=== PATIENT | female | born 1960 | race Caucasian/White ===

== ENCOUNTER 2019-06-28 19:27 | Inpatient (IN) ==
[2019-06-28] MEDS ORDERED: Albuterol 2.5 MG/3 ML NEBULIZER IH PRN (23:01)
[2019-06-28] MEDS ORDERED: Naloxone 0.4 MG/ML INJ IVP PRN (23:01)
[2019-06-28] MEDS ORDERED: 0.9 % Sodium Chloride 1,000 ML IVC SCH (23:15)
[2019-06-28] MEDS ORDERED: Ipratropium/Albuterol Neb 3 ML ONE (23:37)
[2019-06-28 23:50] LABS: VBG HCO3 29 mEq/L (21-27); VBG PCO2 55 mmHg (41-51); VBG PH 7.32 pH Units (7.32-7.42); VBG PO2 79 mmHg (25-50)
[2019-06-28] MEDS: Ipratropium/Albuterol Neb 3 ML IH SCH (23:53)
[2019-06-29] MEDS: Ipratropium/Albuterol Neb 3 ML IH SCH ×4 (03:55→21:41)
[2019-06-29 05:22] LABS: Basophils % 0.2 %; Hematocrit 47.5 % (35.3-44.9); Hemoglobin 15.3 g/dL (11.5-15.4); Immature Granulocytes % 0.6 % (0-4); Lymphocytes % 7.2 %; Mean Corpuscular HGB Conc 32.2 g/dL (31.6-35.5); Mean Corpuscular Hemoglobin 31.9 pg (28.0-33.3); Mean Platelet Volume 10.5 fL (9.4-12.4); Monocytes # 0.2 K/mcL (0.0-1.3); Monocytes % 1.3 %; Neutrophils # 12.9 K/mcL (1.6-8.9); Platelet Count 157 K/mcL (140-400); Segmented Neutrophils % 90.7 %; White Blood Count 14.2 K/mcL (4.3-11.1)
[2019-06-29] MEDS: *HR* Heparin 5,000 UNIT/ML VIAL SQ SCH ×2 (05:22→16:58)
[2019-06-29 05:24] LABS: Prothrombin Time 11.7 Seconds (9.4-12.1)
[2019-06-29 05:41] LABS: Albumin/Globulin Ratio 1.3 (1.1-2.2); Bilirubin,Total 0.4 mg/dL (0.3-1.0); Calcium 9.7 mg/dL (8.6-10.3); Magnesium 1.9 mg/dL (1.6-2.6); Phosphorous 3.1 mg/dL (2.7-4.5); Potassium 5.2 mEq/L (3.5-5.1)
[2019-06-29] MEDS: cefTRIAXone 2,000 MG in Water for inj. (sterile) 20 ML IVP SCH (08:18)
[2019-06-29] MEDS: predniSONE 20 MG TABLET PO SCH (08:18)
[2019-06-29] MEDS ORDERED: cefTRIAXone 1,000 MG in Water for inj. (sterile) 10 ML IVP SCH (09:00)
[2019-06-29] MEDS: Insulin LISPRO 300 UNITS/3 ML VIAL SQ SCH ×3 (12:26→21:26)
[2019-06-29] MEDS ORDERED: 0.9 % Sodium Chloride 1,000 ML IVC SCH (13:15)
[2019-06-29] MEDS: lamoTRIgine 100 MG TABLET PO SCH ×2 (15:24→21:20)
[2019-06-29] MEDS ORDERED: Nystatin Cream 15 GM TUBE TP PRN (16:32)
[2019-06-29] MEDS ORDERED: methocarbamoL 500 MG TABLET PO PRN (16:32)
[2019-06-29] MEDS ORDERED: NON-FORMULARY MEDICATION 1 EACH EACH (Tiotropium Br/Olodaterol Hcl [Stiolto Respimat Inhal IH PRN (16:32)
[2019-06-29] MEDS ORDERED: Ergocalciferol (VIT D2) 50,000 UNIT (1.25MG) CAP PO SCH (16:45)
[2019-06-29] MEDS: Gabapentin 400 MG CAPSULE PO SCH ×2 (17:51→21:23)
[2019-06-29] MEDS ORDERED: NON-FORMULARY MEDICATION 1 EACH EACH (Gabapentin [Neurontin] 800 MG) PO SCH (21:00)
[2019-06-29] MEDS: *HR* OxyCODONE/APAP 7.5/325 TABLET PO PRN (21:20)
[2019-06-29] MEDS: BuPROPion SR (12 HR) 100 MG TABLET PO SCH (21:20)
[2019-06-29] MEDS: atenoloL 25 MG TABLET PO SCH (21:20)
[2019-06-29] MEDS: Famotidine 20 MG TABLET PO SCH (21:20)
[2019-06-29] MEDS: lisinopriL 10 MG TABLET PO SCH (21:23)
[2019-06-30] MEDS: Ipratropium/Albuterol Neb 3 ML IH SCH ×4 (04:00→21:46)
[2019-06-30 05:20] LABS: Hematocrit 43.2 % (35.3-44.9); Mean Corpuscular HGB Conc 31.3 g/dL (31.6-35.5); Mean Corpuscular Hemoglobin 30.8 pg (28.0-33.3); Mean Corpuscular Volume 98.6 fL (83.0-100.0); Mean Platelet Volume 10.6 fL (9.4-12.4); Platelet Count 163 K/mcL (140-400); Red Blood Count 4.38 M/mcL (3.82-4.97); Red Cell Distribution Width 12.8 % (11.5-14.5); White Blood Count 16.1 K/mcL (4.3-11.1)
[2019-06-30 05:22] LABS: Hemoglobin 13.5 g/dL (11.5-15.4)
[2019-06-30 05:28] LABS: Potassium 4.3 mEq/L (3.5-5.1)
[2019-06-30] MEDS: *HR* Heparin 5,000 UNIT/ML VIAL SQ SCH ×2 (05:34→16:58)
[2019-06-30] MEDS: predniSONE 20 MG TABLET PO SCH (07:16)
[2019-06-30] MEDS: atenoloL 50 MG TABLET PO SCH (07:16)
[2019-06-30] MEDS: Cyanocobalamin (B-12) 1,000 MCG TABLET PO SCH (07:16)
[2019-06-30] MEDS: Aspirin Enteric Coated 81 MG Tablet PO SCH (07:16)
[2019-06-30] MEDS: Gabapentin 400 MG CAPSULE PO SCH ×3 (07:16→19:45)
[2019-06-30] MEDS: Lurasidone 20 MG TABLET PO SCH (07:16)
[2019-06-30] MEDS: cefTRIAXone 2,000 MG in Water for inj. (sterile) 20 ML IVP SCH (07:16)
[2019-06-30] MEDS: BuPROPion SR (12 HR) 100 MG TABLET PO SCH ×2 (07:16→19:47)
[2019-06-30] MEDS: lamoTRIgine 100 MG TABLET PO SCH ×2 (07:16→19:46)
[2019-06-30] MEDS: Insulin LISPRO 300 UNITS/3 ML VIAL SQ SCH ×4 (07:17→19:47)
[2019-06-30] MEDS ORDERED: 0.9 % Sodium Chloride 1,000 ML IVC SCH (09:00)
[2019-06-30] MEDS ORDERED: NON-FORMULARY MEDICATION 1 EACH EACH (Omega-3/Dha/Epa/Fish Oil [Fish Oil 1,000 Mg Softgel] PO SCH (09:00)
[2019-06-30] MEDS: Tiotropium 18 MCG inhalation IH SCH (10:02)
[2019-06-30] MEDS ORDERED: Isovue-370 500 ML BOTTLE IVP ONE ×2 (13:50→13:53)
[2019-06-30] MEDS: *HR* OxyCODONE/APAP 7.5/325 TABLET PO PRN (16:58)
[2019-06-30] MEDS: atenoloL 25 MG TABLET PO SCH (19:45)
[2019-06-30] MEDS: lisinopriL 10 MG TABLET PO SCH (19:45)
[2019-06-30] MEDS: Famotidine 20 MG TABLET PO SCH (19:46)
[2019-07-01] MEDS: *HR* OxyCODONE/APAP 7.5/325 TABLET PO PRN (01:14)
[2019-07-01] MEDS: Ipratropium/Albuterol Neb 3 ML IH SCH ×2 (03:38→09:49)
[2019-07-01] MEDS: *HR* Heparin 5,000 UNIT/ML VIAL SQ SCH (05:39)
[2019-07-01] MEDS: cefTRIAXone 2,000 MG in Water for inj. (sterile) 20 ML IVP SCH (08:05)
[2019-07-01] MEDS: Gabapentin 400 MG CAPSULE PO SCH (08:06)
[2019-07-01] MEDS: atenoloL 50 MG TABLET PO SCH (08:06)
[2019-07-01] MEDS: predniSONE 20 MG TABLET PO SCH (08:06)
[2019-07-01] MEDS: Aspirin Enteric Coated 81 MG Tablet PO SCH (08:06)
[2019-07-01] MEDS: Cyanocobalamin (B-12) 1,000 MCG TABLET PO SCH (08:06)
[2019-07-01] MEDS: BuPROPion SR (12 HR) 100 MG TABLET PO SCH (08:06)
[2019-07-01] MEDS: Lurasidone 20 MG TABLET PO SCH (08:06)
[2019-07-01] MEDS: lamoTRIgine 100 MG TABLET PO SCH (08:06)
[2019-07-01] MEDS: Insulin LISPRO 300 UNITS/3 ML VIAL SQ SCH (08:06)
[2019-07-01] MEDS: Tiotropium 18 MCG inhalation IH SCH (08:14)
[2019-07-01 08:47] LABS: Hematocrit 43.2 % (35.3-44.9); Hemoglobin 13.9 g/dL (11.5-15.4); Mean Corpuscular HGB Conc 32.2 g/dL (31.6-35.5); Mean Corpuscular Hemoglobin 31.5 pg (28.0-33.3); Mean Platelet Volume 10.2 fL (9.4-12.4); Platelet Count 172 K/mcL (140-400); Red Blood Count 4.41 M/mcL (3.82-4.97); Red Cell Distribution Width 12.8 % (11.5-14.5); White Blood Count 10.7 K/mcL (4.3-11.1)
[2019-07-01 09:08] LABS: Calcium 10.2 mg/dL (8.6-10.3); Potassium 4.2 mEq/L (3.5-5.1)
[2019-07-01 09:38] VITALS: BP 154/88
== END 2019-07-01 12:15 | disposition home or self-care (01) | DRG 189 ==
LOC: 2ANU → SUATTDRO 20:40
PROVIDERS: ADMIT Internal Medicine; ATTEND Family Medicine

== ENCOUNTER 2020-02-24 11:29 | Inpatient (IN) ==
[2020-02-24] MEDS ORDERED: Naloxone 0.4 MG/ML INJ IVP PRN (16:43)
[2020-02-24] MEDS ORDERED: Acetaminophen 325 MG TABLET PO PRN (16:43)
[2020-02-24] MEDS ORDERED: Ondansetron 4 MG/2 ML VIAL IVP PRN (16:43)
[2020-02-24] MEDS ORDERED: Dextrose Gel 15 GM/37.5 ML TUBE PO PRN ×2 (17:10)
[2020-02-24] MEDS ORDERED: *HR* Dextrose 50 % in Water (Vial) 50 ML VIAL IVP PRN (17:10)
[2020-02-24] MEDS ORDERED: D5% in Water 1,000 ML IVC PRN (17:10)
[2020-02-24] MEDS ORDERED: Ipratropium/Albuterol Neb 3 ML IH PRN (17:12)
[2020-02-24 17:45] LABS: VBG HCO3 31 mEq/L (21-27); VBG PCO2 51 mmHg (41-51); VBG PH 7.39 pH Units (7.32-7.42); VBG PO2 203 mmHg (25-50)
[2020-02-24] MEDS: *HR* OxyCODONE/APAP 7.5/325 TABLET PO PRN (18:37)
[2020-02-24] MEDS: lamoTRIgine 100 MG TABLET PO SCH (19:29)
[2020-02-24] MEDS: Insulin LISPRO 300 UNITS/3 ML VIAL SQ SCH (19:30)
[2020-02-24] MEDS: *HR* Heparin 5,000 UNIT/ML VIAL SQ SCH (22:24)
[2020-02-25 04:19] LABS: Basophils % 0.2 %; Hematocrit 46.3 % (35.3-44.9); Hemoglobin 14.2 g/dL (11.5-15.4); Immature Granulocytes % 0.3 % (0-4); Lymphocytes # 1.7 K/mcL (0.6-4.6); Lymphocytes % 14.4 %; Mean Corpuscular HGB Conc 30.7 g/dL (31.6-35.5); Mean Corpuscular Hemoglobin 31.7 pg (28.0-33.3); Mean Corpuscular Volume 103.3 fL (83.0-100.0); Mean Platelet Volume 10.5 fL (9.4-12.4); Monocytes # 0.8 K/mcL (0.0-1.3); Monocytes % 6.7 %; Neutrophils # 9.4 K/mcL (1.6-8.9); Platelet Count 175 K/mcL (140-400); Red Blood Count 4.48 M/mcL (3.82-4.97); Red Cell Distribution Width 13.6 % (11.5-14.5); Segmented Neutrophils % 78.4 %
[2020-02-25 04:31] LABS: INR 1.1; Prothrombin Time 12.7 Seconds (9.4-12.1)
[2020-02-25 04:40] LABS: Calcium 9.7 mg/dL (8.6-10.3); Magnesium 1.6 mg/dL (1.6-2.6); Potassium 4.5 mEq/L (3.5-5.1)
[2020-02-25 05:02] LABS: Estimated Average Glucose 180 mg/dl
[2020-02-25] MEDS: *HR* Heparin 5,000 UNIT/ML VIAL SQ SCH ×3 (06:12→21:34)
[2020-02-25] MEDS: Cyanocobalamin (B-12) 1,000 MCG TABLET PO SCH (08:10)
[2020-02-25] MEDS: lamoTRIgine 100 MG TABLET PO SCH ×2 (08:10→19:17)
[2020-02-25] MEDS: Aspirin Enteric Coated 81 MG Tablet PO SCH (08:10)
[2020-02-25] MEDS: Gabapentin 400 MG CAPSULE PO SCH ×3 (08:11→19:16)
[2020-02-25] MEDS: lisinopriL 20 MG TABLET PO SCH (08:11)
[2020-02-25] MEDS: cefTRIAXone 1,000 MG in Water for inj. (sterile) 10 ML IVP SCH (08:14)
[2020-02-25] MEDS: Insulin LISPRO 300 UNITS/3 ML VIAL SQ SCH ×4 (08:24→19:27)
[2020-02-25] MEDS: Vortioxetine Hydrobromide [Trintellix] 5 MG PO SCH (08:27)
[2020-02-25] MEDS ORDERED: lisinopriL 10 MG TABLET PO SCH (09:00)
[2020-02-25] MEDS ORDERED: cefTRIAXone 1,000 MG in 0.9 % Sodium Chloride Mini Bag 100 ML IVPB SCH (09:00)
[2020-02-25] MEDS: *HR* OxyCODONE/APAP 7.5/325 TABLET PO PRN (13:52)
[2020-02-26] MEDS: *HR* Heparin 5,000 UNIT/ML VIAL SQ SCH ×3 (06:04→20:27)
[2020-02-26 06:34] LABS: Basophils % 0.5 %; Eosinophils # 0.1 K/mcL (0.0-0.6); Eosinophils % 0.6 %; Hematocrit 46.7 % (35.3-44.9); Hemoglobin 14.1 g/dL (11.5-15.4); Immature Granulocytes % 0.3 % (0-4); Lymphocytes # 2.4 K/mcL (0.6-4.6); Lymphocytes % 30.5 %; Mean Corpuscular HGB Conc 30.2 g/dL (31.6-35.5); Mean Corpuscular Hemoglobin 31.4 pg (28.0-33.3); Monocytes # 0.6 K/mcL (0.0-1.3); Monocytes % 7.9 %; Neutrophils # 4.7 K/mcL (1.6-8.9); Platelet Count 163 K/mcL (140-400); Red Blood Count 4.49 M/mcL (3.82-4.97); Red Cell Distribution Width 13.7 % (11.5-14.5); Segmented Neutrophils % 60.2 %; White Blood Count 7.8 K/mcL (4.3-11.1)
[2020-02-26 06:50] LABS: Calcium 9.9 mg/dL (8.6-10.3); Magnesium 1.8 mg/dL (1.6-2.6); Potassium 4.4 mEq/L (3.5-5.1)
[2020-02-26] MEDS: lisinopriL 20 MG TABLET PO SCH (08:37)
[2020-02-26] MEDS: Gabapentin 400 MG CAPSULE PO SCH ×3 (08:37→19:27)
[2020-02-26] MEDS: Cyanocobalamin (B-12) 1,000 MCG TABLET PO SCH (08:37)
[2020-02-26] MEDS: lamoTRIgine 100 MG TABLET PO SCH ×2 (08:37→19:27)
[2020-02-26] MEDS: Aspirin Enteric Coated 81 MG Tablet PO SCH (08:37)
[2020-02-26] MEDS: cefTRIAXone 1,000 MG in Water for inj. (sterile) 10 ML IVP SCH (08:38)
[2020-02-26] MEDS: Insulin LISPRO 300 UNITS/3 ML VIAL SQ SCH ×4 (08:40→20:28)
[2020-02-26] MEDS: Vortioxetine Hydrobromide [Trintellix] 5 MG PO SCH (19:10)
[2020-02-27 03:10] LABS: Basophils % 0.4 %; Eosinophils # 0.1 K/mcL (0.0-0.6); Eosinophils % 1.3 %; Hematocrit 46.2 % (35.3-44.9); Hemoglobin 14.6 g/dL (11.5-15.4); Immature Granulocytes % 0.2 % (0-4); Lymphocytes # 2.9 K/mcL (0.6-4.6); Lymphocytes % 33.7 %; Mean Corpuscular HGB Conc 31.6 g/dL (31.6-35.5); Mean Corpuscular Hemoglobin 31.9 pg (28.0-33.3); Mean Corpuscular Volume 100.9 fL (83.0-100.0); Mean Platelet Volume 10.4 fL (9.4-12.4); Monocytes # 0.7 K/mcL (0.0-1.3); Monocytes % 8.4 %; Neutrophils # 4.7 K/mcL (1.6-8.9); Platelet Count 165 K/mcL (140-400); Red Blood Count 4.58 M/mcL (3.82-4.97); Red Cell Distribution Width 13.1 % (11.5-14.5); White Blood Count 8.5 K/mcL (4.3-11.1)
[2020-02-27 03:28] LABS: Magnesium 1.7 mg/dL (1.6-2.6); Potassium 4.2 mEq/L (3.5-5.1)
[2020-02-27] MEDS: *HR* Heparin 5,000 UNIT/ML VIAL SQ SCH ×2 (05:57→13:27)
[2020-02-27] MEDS: cefTRIAXone 1,000 MG in Water for inj. (sterile) 10 ML IVP SCH (08:16)
[2020-02-27] MEDS: Insulin LISPRO 300 UNITS/3 ML VIAL SQ SCH ×2 (08:16→13:27)
[2020-02-27] MEDS: lisinopriL 20 MG TABLET PO SCH (08:18)
[2020-02-27] MEDS: Vortioxetine Hydrobromide [Trintellix] 5 MG PO SCH (08:18)
[2020-02-27] MEDS: Aspirin Enteric Coated 81 MG Tablet PO SCH (08:18)
[2020-02-27] MEDS: Gabapentin 400 MG CAPSULE PO SCH ×2 (08:18→13:27)
[2020-02-27] MEDS: Cyanocobalamin (B-12) 1,000 MCG TABLET PO SCH (08:18)
[2020-02-27] MEDS: lamoTRIgine 100 MG TABLET PO SCH (08:18)
[2020-02-27 11:15] VITALS: BP 162/92
[2020-02-27] MEDS ORDERED: FLU Vac QV 20-21 (6Month+)/PF 0.5 ML SYRINGE IM ONE (14:37)
[2020-02-29] MEDS ORDERED: Ergocalciferol (VIT D2) 50,000 UNIT (1.25MG) CAP PO SCH (09:00)
== END 2020-02-27 15:35 | disposition home or self-care (01) | DRG 189 ==
LOC: 2NNU → SUATTDRO 14:31
PROVIDERS: ADMIT Pharmacist; ATTEND Student in an Organized Health Care Education/Training Program

== ENCOUNTER 2021-11-28 10:22 | Inpatient (IN) ==
[2021-11-28] MEDS ORDERED: Ipratropium/Albuterol Neb 3 ML IH ONE (10:47)
[2021-11-28] MEDS ORDERED: methylPREDNISolone 125 MG/2 ML VIAL IVP ONE (10:47)
[2021-11-28] MEDS ORDERED: Albuterol 2.5 MG/3 ML NEBULIZER IH ONE (10:47)
[2021-11-28 11:08] LABS: Basophils # 0.1 K/mcL (0.0-0.2); Basophils % 0.7 %; Eosinophils # 0.1 K/mcL (0.0-0.6); Eosinophils % 1.3 %; Hematocrit 53.5 % (35.3-44.9); Hemoglobin 16.2 g/dL (11.5-15.4); Immature Granulocytes % 0.2 % (0-4); Lymphocytes # 1.7 K/mcL (0.6-4.6); Lymphocytes % 19.1 %; Mean Corpuscular HGB Conc 30.3 g/dL (31.6-35.5); Mean Corpuscular Hemoglobin 29.2 pg (28.0-33.3); Mean Corpuscular Volume 96.6 fL (83.0-100.0); Mean Platelet Volume 10.9 fL (9.4-12.4); Monocytes % 11.2 %; Neutrophils # 6.1 K/mcL (1.6-8.9); Platelet Count 186 K/mcL (140-400); Red Blood Count 5.54 M/mcL (3.82-4.97); Red Cell Distribution Width 13.7 % (11.5-14.5); Segmented Neutrophils % 67.5 %
[2021-11-28] MEDS ORDERED: Iopamidol - 370 500 ML MLS IVP ONE ×2 (11:12→11:15)
[2021-11-28] MEDS ORDERED: Azithromycin 250 MG TABLET PO ONE (11:24)
[2021-11-28] MEDS ORDERED: cefTRIAXone 1,000 MG in Water for inj. (sterile) 10 ML IVP ONE (11:24)
[2021-11-28 11:27] LABS: ABG Base Excess 5 mEq/L (-2 to 3); ABG HCO3 36 mEq/L (21-27); ABG Oxygen Saturation 90 % (95-98); ABG PCO2 81 mmHg (35-45); ABG PH 7.25 pH Units (7.32-7.45); ABG PO2 71 mmHg (85-104); ABG TCO2 38 mEq/L (20-26)
[2021-11-28 11:31] LABS: Alanine Aminotransferase 10 Units/L (7-52); Albumin 3.4 g/dL (3.5-5.7); Albumin/Globulin Ratio 1.1 (1.1-2.2); Alkaline Phosphatase 127 Units/L (34-104); Aspartate Amino Transferase 17 Units/L (13-39); BUN/Creatinine Ratio 13 (6-26); Bilirubin,Total 0.4 mg/dL (0.3-1.0); Blood Urea Nitrogen 18 mg/dL (8-23); Calcium 8.7 mg/dL (8.6-10.3); Carbon Dioxide 37 mEq/L (23-29); Chloride 99 mEq/L (98-107); Glucose 146 mg/dL (70-105); Osmolality,Calculated 291 (280-300); Potassium 4.5 mEq/L (3.5-5.1); Sodium 138 mEq/L (136-145); Total Protein 6.4 g/dL (6.4-8.9); Troponin I < 0.03 ng/mL (< 0.04)
[2021-11-28 12:18] LABS: Adenovirus Not Detected (Not Detect); Bordetella Pertussis Not Detected (Not Detect); Chlamydophila pneumoniae Not Detected (Not Detect); Coronavirus 229E Not Detected (Not Detect); Coronavirus HKU1 Not Detected (Not Detect); Coronavirus NL63 Not Detected (Not Detect); Coronavirus OC43 Not Detected (Not Detect); Human Metapneumovirus Not Detected (Not Detect); Human Rhinovirus/Enterovirus Not Detected (Not Detect); Influenza A Subtype 2009 H1 Not Detected (Not Detect); Influenza B Not Detected (Not Detect); Mycoplasma pneumoniae Not Detected (Not Detect); Parainfluenza Virus 1 Not Detected (Not Detect); Parainfluenza Virus 2 Not Detected (Not Detect); Parainfluenza Virus 3 Not Detected (Not Detect); Parainfluenza Virus 4 Not Detected (Not Detect); Respiratory Syncytial Virus Not Detected (Not Detect); SARS-CoV-2 Not Detected (Not Detect)
[2021-11-28] MEDS ORDERED: Naloxone 0.4 MG/ML INJ IVP PRN (14:53)
[2021-11-28] MEDS ORDERED: D5% in Water 1,000 ML IVC PRN (15:40)
[2021-11-28] MEDS ORDERED: *HR* Dextrose 50 % in Water (Syg) 50 ML SYRINGE IVP PRN (15:40)
[2021-11-28] MEDS ORDERED: Dextrose Gel 15 GM/37.5 ML TUBE PO PRN ×2 (15:40)
[2021-11-28] MEDS: Ipratropium/Albuterol Neb 3 ML IH SCH ×3 (16:20→23:08)
[2021-11-28] MEDS: Insulin LISPRO 300 UNITS/3 ML VIAL SUBQ SCH ×2 (17:01→21:05)
[2021-11-28] MEDS: MethylPREDNISolone 40 MG/ML VIAL IVP SCH ×2 (17:45→23:52)
[2021-11-28] MEDS: *HR* Heparin 5,000 UNIT/ML VIAL SQ SCH (17:46)
[2021-11-28] MEDS: Gabapentin 300 MG CAPSULE PO SCH (22:07)
[2021-11-29] MEDS ORDERED: *HR* Metoprolol 5 MG/5 ML VIAL IVP PRN (00:13)
[2021-11-29] MEDS: *HR* OxyCODONE/APAP 7.5/325 TABLET PO PRN ×2 (00:24→22:03)
[2021-11-29] MEDS: *HR* Labetalol 20 MG/4 ML SYRINGE IVP PRN ×2 (02:17→06:33)
[2021-11-29] MEDS: Ipratropium/Albuterol Neb 3 ML IH SCH ×6 (04:01→23:35)
[2021-11-29] MEDS: *HR* Heparin 5,000 UNIT/ML VIAL SQ SCH ×2 (05:40→17:17)
[2021-11-29] MEDS: Insulin LISPRO 300 UNITS/3 ML VIAL SUBQ SCH ×4 (08:00→19:54)
[2021-11-29] MEDS: MethylPREDNISolone 40 MG/ML VIAL IVP SCH ×2 (08:01→15:02)
[2021-11-29] MEDS: Aspirin Enteric Coated 81 MG Tablet PO SCH (08:06)
[2021-11-29] MEDS: lamoTRIgine 100 MG TABLET PO SCH ×2 (08:07→19:54)
[2021-11-29] MEDS: Gabapentin 300 MG CAPSULE PO SCH ×3 (08:07→19:53)
[2021-11-29] MEDS: LEVOMILNACIPRAN 40 MG PO SCH (08:07)
[2021-11-29] MEDS: calcitrioL 0.25 MCG CAPSULE PO SCH (08:08)
[2021-11-29] MEDS: lisinopriL 20 MG TABLET PO SCH (08:08)
[2021-11-29] MEDS: methocarbamoL 750 MG TABLET PO SCH ×3 (08:08→19:54)
[2021-11-29] MEDS: atenoloL 25 MG TABLET PO SCH (08:08)
[2021-11-29] MEDS: Cyanocobalamin (B-12) 1,000 MCG TABLET PO SCH (08:08)
[2021-11-29 08:48] LABS: VBG HCO3 35 mEq/L (21-27); VBG PCO2 77 mmHg (41-51); VBG PH 7.26 pH Units (7.32-7.42); VBG PO2 84 mmHg (25-50)
[2021-11-29 08:49] LABS: Hematocrit 54.5 % (35.3-44.9); Hemoglobin 16.2 g/dL (11.5-15.4); Mean Corpuscular HGB Conc 29.7 g/dL (31.6-35.5); Mean Corpuscular Hemoglobin 28.5 pg (28.0-33.3); Platelet Count 189 K/mcL (140-400); Red Blood Count 5.68 M/mcL (3.82-4.97); Red Cell Distribution Width 13.5 % (11.5-14.5); White Blood Count 10.9 K/mcL (4.3-11.1)
[2021-11-29 09:12] LABS: Calcium 9.3 mg/dL (8.6-10.3); Magnesium 1.8 mg/dL (1.6-2.6)
[2021-11-29] MEDS: Azithromycin 500 MG in 0.9 % Sodium Chloride 250 ML IVPB SCH (12:58)
[2021-11-30] MEDS: MethylPREDNISolone 40 MG/ML VIAL IVP SCH ×3 (00:32→18:06)
[2021-11-30] MEDS: Ipratropium/Albuterol Neb 3 ML IH SCH ×6 (03:50→23:01)
[2021-11-30] MEDS: *HR* Labetalol 20 MG/4 ML SYRINGE IVP PRN (05:35)
[2021-11-30] MEDS: *HR* Heparin 5,000 UNIT/ML VIAL SQ SCH ×2 (05:36→18:09)
[2021-11-30] MEDS ORDERED: *HR* Labetalol 20 MG/4 ML SYRINGE IVP ONE (06:25)
[2021-11-30] MEDS: Insulin LISPRO 300 UNITS/3 ML VIAL SUBQ SCH ×4 (07:46→20:37)
[2021-11-30] MEDS: lamoTRIgine 100 MG TABLET PO SCH ×2 (07:52→20:28)
[2021-11-30] MEDS: Aspirin Enteric Coated 81 MG Tablet PO SCH (07:52)
[2021-11-30] MEDS: Gabapentin 300 MG CAPSULE PO SCH ×3 (07:53→20:27)
[2021-11-30] MEDS: LEVOMILNACIPRAN 40 MG PO SCH (07:53)
[2021-11-30] MEDS: methocarbamoL 750 MG TABLET PO SCH ×3 (07:53→20:28)
[2021-11-30] MEDS: Cyanocobalamin (B-12) 1,000 MCG TABLET PO SCH (07:53)
[2021-11-30] MEDS: atenoloL 25 MG TABLET PO SCH (07:59)
[2021-11-30] MEDS: lisinopriL 20 MG TABLET PO SCH (07:59)
[2021-11-30 11:03] LABS: Hematocrit 52.4 % (35.3-44.9); Hemoglobin 15.9 g/dL (11.5-15.4); Mean Corpuscular HGB Conc 30.3 g/dL (31.6-35.5); Mean Corpuscular Hemoglobin 28.8 pg (28.0-33.3); Mean Corpuscular Volume 94.9 fL (83.0-100.0); Mean Platelet Volume 11.1 fL (9.4-12.4); Platelet Count 198 K/mcL (140-400); Red Blood Count 5.52 M/mcL (3.82-4.97); Red Cell Distribution Width 13.5 % (11.5-14.5); White Blood Count 18.2 K/mcL (4.3-11.1)
[2021-11-30 11:10] LABS: VBG HCO3 35 mEq/L (21-27); VBG PCO2 70 mmHg (41-51); VBG PO2 68 mmHg (25-50)
[2021-11-30 11:21] LABS: Calcium 9.5 mg/dL (8.6-10.3); Magnesium 1.9 mg/dL (1.6-2.6)
[2021-11-30] MEDS ORDERED: lisinopriL 10 MG TABLET PO ONE (12:15)
[2021-11-30] MEDS: Azithromycin 500 MG in 0.9 % Sodium Chloride 250 ML IVPB SCH (12:17)
[2021-11-30] MEDS: amLODIPine 5 MG TABLET PO SCH (13:46)
[2021-11-30] MEDS: *HR* OxyCODONE/APAP 7.5/325 TABLET PO PRN (20:36)
[2021-12-01] MEDS: MethylPREDNISolone 40 MG/ML VIAL IVP SCH (01:12)
[2021-12-01] MEDS: Ipratropium/Albuterol Neb 3 ML IH SCH ×6 (04:20→23:28)
[2021-12-01] MEDS: *HR* Heparin 5,000 UNIT/ML VIAL SQ SCH ×2 (05:14→17:26)
[2021-12-01] MEDS: Insulin LISPRO 300 UNITS/3 ML VIAL SUBQ SCH ×4 (08:50→20:44)
[2021-12-01] MEDS: amLODIPine 5 MG TABLET PO SCH (08:53)
[2021-12-01] MEDS: LEVOMILNACIPRAN 40 MG PO SCH (08:53)
[2021-12-01] MEDS: lamoTRIgine 100 MG TABLET PO SCH ×2 (08:53→20:44)
[2021-12-01] MEDS: Gabapentin 300 MG CAPSULE PO SCH ×3 (08:53→20:44)
[2021-12-01] MEDS: Aspirin Enteric Coated 81 MG Tablet PO SCH (08:53)
[2021-12-01] MEDS: methocarbamoL 750 MG TABLET PO SCH ×3 (08:54→20:44)
[2021-12-01] MEDS: lisinopriL 20 MG TABLET PO SCH (08:54)
[2021-12-01] MEDS: Cyanocobalamin (B-12) 1,000 MCG TABLET PO SCH (08:54)
[2021-12-01] MEDS: atenoloL 25 MG TABLET PO SCH (08:54)
[2021-12-01 09:20] LABS: Basophils % 0.1 %; Hematocrit 54.5 % (35.3-44.9); Hemoglobin 16.2 g/dL (11.5-15.4); Immature Granulocytes % 0.4 % (0-4); Lymphocytes # 0.9 K/mcL (0.6-4.6); Lymphocytes % 5.9 %; Mean Corpuscular HGB Conc 29.7 g/dL (31.6-35.5); Mean Corpuscular Hemoglobin 28.1 pg (28.0-33.3); Mean Corpuscular Volume 94.5 fL (83.0-100.0); Mean Platelet Volume 11.1 fL (9.4-12.4); Monocytes # 0.5 K/mcL (0.0-1.3); Monocytes % 3.2 %; Neutrophils # 14.2 K/mcL (1.6-8.9); Platelet Count 203 K/mcL (140-400); Red Blood Count 5.77 M/mcL (3.82-4.97); Red Cell Distribution Width 13.5 % (11.5-14.5); Segmented Neutrophils % 90.4 %; White Blood Count 15.7 K/mcL (4.3-11.1)
[2021-12-01 09:22] LABS: VBG HCO3 34 mEq/L (21-27); VBG PCO2 67 mmHg (41-51); VBG PH 7.31 pH Units (7.32-7.42); VBG PO2 83 mmHg (25-50)
[2021-12-01] MEDS ORDERED: amLODIPine 5 MG TABLET PO ONE (12:00)
[2021-12-01] MEDS: Azithromycin 500 MG in 0.9 % Sodium Chloride 250 ML IVPB SCH (12:08)
[2021-12-01] MEDS: predniSONE 20 MG TABLET PO SCH (13:36)
[2021-12-01] MEDS: hydrALAZINE 25 MG TABLET PO SCH (20:44)
[2021-12-01] MEDS: *HR* OxyCODONE/APAP 7.5/325 TABLET PO PRN (23:15)
[2021-12-02 03:27] LABS: Hemoglobin 16.9 g/dL (11.5-15.4); Mean Corpuscular HGB Conc 29.8 g/dL (31.6-35.5); Mean Corpuscular Volume 93.9 fL (83.0-100.0); Mean Platelet Volume 10.6 fL (9.4-12.4); Platelet Count 201 K/mcL (140-400); Red Blood Count 6.04 M/mcL (3.82-4.97); Red Cell Distribution Width 13.3 % (11.5-14.5); White Blood Count 16.3 K/mcL (4.3-11.1)
[2021-12-02 03:29] LABS: Hematocrit 56.7 % (35.3-44.9)
[2021-12-02] MEDS: Ipratropium/Albuterol Neb 3 ML IH SCH ×6 (03:42→23:47)
[2021-12-02 03:53] LABS: Calcium 9.4 mg/dL (8.6-10.3); Potassium 5.1 mEq/L (3.5-5.1)
[2021-12-02] MEDS: *HR* Heparin 5,000 UNIT/ML VIAL SQ SCH ×2 (06:05→16:42)
[2021-12-02] MEDS: *HR* Labetalol 20 MG/4 ML SYRINGE IVP PRN ×2 (06:09→23:50)
[2021-12-02] MEDS ORDERED: predniSONE 20 MG TABLET PO SCH (09:00)
[2021-12-02] MEDS: Insulin LISPRO 300 UNITS/3 ML VIAL SUBQ SCH ×4 (09:25→19:59)
[2021-12-02] MEDS: Aspirin Enteric Coated 81 MG Tablet PO SCH (09:27)
[2021-12-02] MEDS: lamoTRIgine 100 MG TABLET PO SCH ×2 (09:27→19:57)
[2021-12-02] MEDS: hydrALAZINE 25 MG TABLET PO SCH ×3 (09:27→19:57)
[2021-12-02] MEDS: Gabapentin 300 MG CAPSULE PO SCH ×3 (09:28→19:57)
[2021-12-02] MEDS: calcitrioL 0.25 MCG CAPSULE PO SCH (09:28)
[2021-12-02] MEDS: methocarbamoL 750 MG TABLET PO SCH ×3 (09:28→19:57)
[2021-12-02] MEDS: predniSONE 20 MG TABLET PO SCH (09:28)
[2021-12-02] MEDS: LEVOMILNACIPRAN 40 MG PO SCH (09:28)
[2021-12-02] MEDS: amLODIPine 5 MG TABLET PO SCH (09:28)
[2021-12-02] MEDS: lisinopriL 20 MG TABLET PO SCH (09:29)
[2021-12-02] MEDS: atenoloL 25 MG TABLET PO SCH (09:29)
[2021-12-02] MEDS: Cyanocobalamin (B-12) 1,000 MCG TABLET PO SCH (09:29)
[2021-12-02] MEDS: Azithromycin 250 MG TABLET PO SCH (12:56)
[2021-12-02] MEDS ORDERED: cloNIDine HCL 0.1 MG TABLET PO PRN (16:05)
[2021-12-02] MEDS: Insulin DETEMIR 100 UNIT/ML X5UNITS SUBQ SCH (16:34)
[2021-12-02] MEDS: *HR* OxyCODONE/APAP 7.5/325 TABLET PO PRN (22:39)
[2021-12-03 03:17] LABS: Hemoglobin 16.9 g/dL (11.5-15.4); Mean Corpuscular HGB Conc 30.5 g/dL (31.6-35.5); Mean Corpuscular Volume 91.9 fL (83.0-100.0); Mean Platelet Volume 10.7 fL (9.4-12.4); Platelet Count 185 K/mcL (140-400); Red Blood Count 6.03 M/mcL (3.82-4.97); Red Cell Distribution Width 13.3 % (11.5-14.5); White Blood Count 13.3 K/mcL (4.3-11.1)
[2021-12-03 03:19] LABS: Hematocrit 55.4 % (35.3-44.9)
[2021-12-03 03:27] LABS: Calcium 9.7 mg/dL (8.6-10.3); Potassium 4.8 mEq/L (3.5-5.1)
[2021-12-03] MEDS: Ipratropium/Albuterol Neb 3 ML IH SCH ×6 (04:08→23:16)
[2021-12-03] MEDS: *HR* OxyCODONE/APAP 7.5/325 TABLET PO PRN ×2 (04:45→23:01)
[2021-12-03] MEDS: *HR* Heparin 5,000 UNIT/ML VIAL SQ SCH ×2 (05:49→17:29)
[2021-12-03] MEDS: amLODIPine 5 MG TABLET PO SCH (08:00)
[2021-12-03] MEDS: hydrALAZINE 25 MG TABLET PO SCH ×3 (08:01→20:02)
[2021-12-03] MEDS: lisinopriL 20 MG TABLET PO SCH (08:01)
[2021-12-03] MEDS: Cyanocobalamin (B-12) 1,000 MCG TABLET PO SCH (08:01)
[2021-12-03] MEDS: predniSONE 20 MG TABLET PO SCH (08:01)
[2021-12-03] MEDS: Aspirin Enteric Coated 81 MG Tablet PO SCH (08:01)
[2021-12-03] MEDS: methocarbamoL 750 MG TABLET PO SCH ×3 (08:02→20:02)
[2021-12-03] MEDS: lamoTRIgine 100 MG TABLET PO SCH ×2 (08:02→20:02)
[2021-12-03] MEDS: Gabapentin 300 MG CAPSULE PO SCH ×3 (08:02→20:05)
[2021-12-03] MEDS: Azithromycin 250 MG TABLET PO SCH (08:02)
[2021-12-03] MEDS: LEVOMILNACIPRAN 40 MG PO SCH (08:04)
[2021-12-03] MEDS: Insulin LISPRO 300 UNITS/3 ML VIAL SUBQ SCH ×3 (08:05→17:30)
[2021-12-03] MEDS: Azithromycin 500 MG in 0.9 % Sodium Chloride 250 ML IVPB SCH (09:01)
[2021-12-03] MEDS: *HR* Labetalol 20 MG/4 ML SYRINGE IVP PRN (11:58)
[2021-12-03] MEDS: carvediloL 6.25 MG TABLET PO SCH ×2 (12:03→17:29)
[2021-12-03] MEDS ORDERED: Insulin LISPRO 300 UNITS/3 ML VIAL SUBQ SCH (13:48)
[2021-12-03] MEDS: Insulin DETEMIR 100 UNIT/ML X5UNITS SUBQ SCH (20:03)
[2021-12-04 03:39] LABS: Calcium 9.3 mg/dL (8.6-10.3); Potassium 4.4 mEq/L (3.5-5.1)
[2021-12-04] MEDS: Ipratropium/Albuterol Neb 3 ML IH SCH ×3 (04:00→11:09)
[2021-12-04] MEDS: *HR* Labetalol 20 MG/4 ML SYRINGE IVP PRN (04:52)
[2021-12-04] MEDS: *HR* Heparin 5,000 UNIT/ML VIAL SQ SCH (04:57)
[2021-12-04] MEDS: hydrALAZINE 25 MG TABLET PO SCH (08:21)
[2021-12-04] MEDS: amLODIPine 5 MG TABLET PO SCH (08:21)
[2021-12-04] MEDS: Gabapentin 300 MG CAPSULE PO SCH (08:21)
[2021-12-04] MEDS: carvediloL 6.25 MG TABLET PO SCH (08:22)
[2021-12-04] MEDS: predniSONE 20 MG TABLET PO SCH (08:22)
[2021-12-04] MEDS: lamoTRIgine 100 MG TABLET PO SCH (08:22)
[2021-12-04] MEDS: Aspirin Enteric Coated 81 MG Tablet PO SCH (08:22)
[2021-12-04] MEDS: calcitrioL 0.25 MCG CAPSULE PO SCH (08:22)
[2021-12-04] MEDS: Azithromycin 250 MG TABLET PO SCH (08:22)
[2021-12-04] MEDS: methocarbamoL 750 MG TABLET PO SCH (08:22)
[2021-12-04] MEDS: Cyanocobalamin (B-12) 1,000 MCG TABLET PO SCH (08:22)
[2021-12-04] MEDS: LEVOMILNACIPRAN 40 MG PO SCH (08:23)
[2021-12-04] MEDS: Insulin LISPRO 300 UNITS/3 ML VIAL SUBQ SCH ×2 (08:26→12:04)
[2021-12-04 11:31] VITALS: BP 119/61; PULSE 70; TEMP 97.7; O2SAT 95
[2021-12-05 13:08] LABS: Metanephrine, Plasma 0.13 nmol/L (0.00-0.49)
== END 2021-12-04 14:25 | disposition home or self-care (01) | DRG 190 ==
LOC: 2NENU 10:22 → EMEROOARM 10:22 → SUATTDRO 15:21 → 2NENU 16:08
PROVIDERS: ADMIT Internal Medicine; ATTEND Internal Medicine

== ENCOUNTER 2021-12-18 08:05 | Inpatient (IN) ==
[2021-12-18] MEDS ORDERED: Ipratropium/Albuterol Neb 3 ML IH ONE (08:23)
[2021-12-18] MEDS ORDERED: cefTRIAXone 1,000 MG in 0.9 % Sodium Chloride 10 ML IVP ONE (08:23)
[2021-12-18 09:01] LABS: INR 0.9; Prothrombin Time 10.3 Seconds (9.4-12.1)
[2021-12-18 09:04] LABS: Activated Partial Thrombo Time 32.7 Seconds (26.0-36.0)
[2021-12-18 09:14] LABS: Alanine Aminotransferase 18 Units/L (7-52); Albumin/Globulin Ratio 1.5 (1.1-2.2); Alkaline Phosphatase 140 Units/L (34-104); Aspartate Amino Transferase 11 Units/L (13-39); BUN/Creatinine Ratio 23 (6-26); Bilirubin,Direct 0.1 mg/dL (0.0-0.2); Bilirubin,Indirect 0.2 mg/dL (0.0-1.0); Bilirubin,Total 0.3 mg/dL (0.3-1.0); Blood Urea Nitrogen 36 mg/dL (8-23); Calcium 9.5 mg/dL (8.6-10.3); Carbon Dioxide 35 mEq/L (23-29); Chloride 95 mEq/L (98-107); Globulin 2.7 g/dL (2.4-3.5); Glucose 336 mg/dL (70-105); Osmolality,Calculated 302 (280-300); Potassium 5.8 mEq/L (3.5-5.1); Sodium 135 mEq/L (136-145); Total Protein 6.7 g/dL (6.4-8.9); Troponin I < 0.03 ng/mL (< 0.04)
[2021-12-18 09:41] LABS: Basophils % 0.3 %; Eosinophils # 0.1 K/mcL (0.0-0.6); Eosinophils % 0.6 %; Hematocrit 48.6 % (35.3-44.9); Hemoglobin 14.2 g/dL (11.5-15.4); Immature Granulocytes % 0.6 % (0-4); Lymphocytes # 1.3 K/mcL (0.6-4.6); Lymphocytes % 10.7 %; Mean Corpuscular HGB Conc 29.2 g/dL (31.6-35.5); Mean Corpuscular Hemoglobin 28.7 pg (28.0-33.3); Mean Corpuscular Volume 98.4 fL (83.0-100.0); Mean Platelet Volume 10.7 fL (9.4-12.4); Monocytes # 0.6 K/mcL (0.0-1.3); Monocytes % 5.2 %; Neutrophils # 9.9 K/mcL (1.6-8.9); Platelet Count 165 K/mcL (140-400); Red Blood Count 4.94 M/mcL (3.82-4.97); Red Cell Distribution Width 14.1 % (11.5-14.5); Segmented Neutrophils % 82.6 %
[2021-12-18 09:54] LABS: Adenovirus Not Detected (Not Detect); Bordetella Pertussis Not Detected (Not Detect); Chlamydophila pneumoniae Not Detected (Not Detect); Coronavirus 229E Not Detected (Not Detect); Coronavirus HKU1 Not Detected (Not Detect); Coronavirus NL63 Not Detected (Not Detect); Coronavirus OC43 Not Detected (Not Detect); Human Metapneumovirus Not Detected (Not Detect); Human Rhinovirus/Enterovirus Not Detected (Not Detect); Influenza A Subtype 2009 H1 Not Detected (Not Detect); Influenza B Not Detected (Not Detect); Mycoplasma pneumoniae Not Detected (Not Detect); Parainfluenza Virus 1 Not Detected (Not Detect); Parainfluenza Virus 2 Not Detected (Not Detect); Parainfluenza Virus 3 Not Detected (Not Detect); Parainfluenza Virus 4 Not Detected (Not Detect); Respiratory Syncytial Virus Not Detected (Not Detect); SARS-CoV-2 Not Detected (Not Detect)
[2021-12-18] MEDS ORDERED: Insulin Human Regular 5 UNIT in 0.9 % Sodium Chloride 10 ML IV ONE (10:03)
[2021-12-18] MEDS ORDERED: Furosemide 40 MG/4 ML VIAL IVP ONE (10:03)
[2021-12-18] MEDS ORDERED: Iopamidol - 370 500 ML MLS IVP ONE (10:14)
[2021-12-18] MEDS ORDERED: Naloxone 0.4 MG/ML INJ IVP PRN (10:46)
[2021-12-18] MEDS ORDERED: Ondansetron 4 MG/2 ML VIAL IVP PRN (10:46)
[2021-12-18] MEDS ORDERED: Acetaminophen 325 MG TABLET PO PRN (10:46)
[2021-12-18] MEDS ORDERED: Ipratropium Neb 0.5 MG NEBULIZER IH PRN (10:53)
[2021-12-18] MEDS ORDERED: D5% in Water 1,000 ML IVC PRN (11:04)
[2021-12-18] MEDS ORDERED: Dextrose Gel 15 GM/37.5 ML TUBE PO PRN ×2 (11:04)
[2021-12-18] MEDS ORDERED: *HR* Dextrose 50 % in Water (Syg) 50 ML SYRINGE IVP PRN (11:04)
[2021-12-18 11:33] LABS: ABG Base Excess 5 mEq/L (-2 to 3); ABG Chloride 96 mEq/L (98-107); ABG Glucose 364 mg/dL (60-95); ABG HCO3 41 mEq/L (21-27); ABG Ionized Calcium 1.32 mmol/L (1.15-1.35); ABG Oxygen Saturation 96 % (95-98); ABG PCO2 119 mmHg (35-45); ABG PH 7.15 pH Units (7.32-7.45); ABG PO2 117 mmHg (85-104); ABG TCO2 45 mEq/L (20-26)
[2021-12-18 11:43] LABS: Bacteria,Urine Few per hpf (None-Few); Bilirubin,Urine Negative (Negative); Blood,Urine Negative (Negative); Clarity,Urine Clear (Clear); Color,Urine Light-Yellow (Yellow); Glucose,Urine (UA) 150 mg/dL (Normal); Ketones,Urine Negative (Negative); Leukocyte Esterase,Urine Negative (Negative); Mucus,Urine Few per lpf (None-Few); Nitrite,Urine Negative (Negative); Protein,Urine 200 mg/dL (Neg-Trace); RBC,Urine 0-3 per hpf (0-3); Specific Gravity,Urine 1.016 (1.010-1.025); Squamous Epithelial Cell,Urine Few per hpf (None-Few); Urobilinogen,Urine Normal (Normal); WBC,Urine 0-3 per hpf (0-3)
[2021-12-18] MEDS ORDERED: Azithromycin 500 MG in 0.9 % Sodium Chloride 250 ML IVPB ONE (12:00)
[2021-12-18] MEDS: Ipratropium/Albuterol Neb 3 ML IH SCH ×5 (12:06→23:02)
[2021-12-18 12:59] LABS: Amphetamine Screen,Urine Negative ng/mL (Cutoff=1000); Barbiturate Screen,Urine Negative ng/mL (Cutoff=200); Benzodiazepines Screen,Urine Negative ng/mL (Cutoff=200); Cannabinoid Screen,Urine Negative ng/mL (Cutoff = 50); Cocaine Screen,Urine Negative ng/mL (Cutoff= 300); Opiate Screen,Urine Negative ng/mL (Cutoff=300); Phencyclidine Screen,Urine Negative ng/mL (Cutoff=25)
[2021-12-18] MEDS: Piperacillin/Tazobactam 3.375 GM in 0.9 % Sodium Chloride Mini Bag 100 ML IVPB SCH ×2 (13:41→16:57)
[2021-12-18 14:28] LABS: Calcium 9.8 mg/dL (8.6-10.3); Potassium 5.7 mEq/L (3.5-5.1)
[2021-12-18] MEDS ORDERED: *HR* LORazepam 2 MG/ML VIAL IVP ONE (14:32)
[2021-12-18 16:04] LABS: ABG Base Excess 6 mEq/L (-2 to 3); ABG HCO3 39 mEq/L (21-27); ABG Oxygen Saturation 93 % (95-98); ABG PCO2 91 mmHg (35-45); ABG PH 7.24 pH Units (7.32-7.45); ABG PO2 85 mmHg (85-104); ABG TCO2 42 mEq/L (20-26)
[2021-12-18] MEDS: Insulin LISPRO 300 UNITS/3 ML VIAL SUBQ SCH ×2 (16:45→18:11)
[2021-12-18] MEDS: *HR* Heparin 5,000 UNIT/ML VIAL SQ SCH (16:56)
[2021-12-18] MEDS: MethylPREDNISolone 40 MG/ML VIAL IVP SCH (16:56)
[2021-12-18] MEDS: carvediloL 6.25 MG TABLET PO SCH (17:00)
[2021-12-18 20:43] LABS: BUN/Creatinine Ratio 22 (6-26); Blood Urea Nitrogen 34 mg/dL (8-23); Calcium 9.9 mg/dL (8.6-10.3); Carbon Dioxide 36 mEq/L (23-29); Chloride 94 mEq/L (98-107); Glucose 273 mg/dL (70-105); Osmolality,Calculated 301 (280-300); Potassium 5.3 mEq/L (3.5-5.1); Sodium 137 mEq/L (136-145)
[2021-12-18 20:44] LABS: Troponin I < 0.03 ng/mL (< 0.04)
[2021-12-18 20:50] LABS: ABG Base Excess 8 mEq/L (-2 to 3); ABG HCO3 39 mEq/L (21-27); ABG Oxygen Saturation 95 % (95-98); ABG PCO2 80 mmHg (35-45); ABG PO2 87 mmHg (85-104); ABG TCO2 42 mEq/L (20-26); Blood Gas Modality BiLevel; Blood Gas Pressure Support 8 cm H2O
[2021-12-18] MEDS: lamoTRIgine 100 MG TABLET PO SCH (21:44)
[2021-12-18] MEDS: hydrALAZINE 25 MG TABLET PO SCH (21:44)
[2021-12-19] MEDS: Insulin LISPRO 300 UNITS/3 ML VIAL SUBQ SCH ×3 (00:29→18:04)
[2021-12-19] MEDS: Piperacillin/Tazobactam 3.375 GM in 0.9 % Sodium Chloride Mini Bag 100 ML IVPB SCH ×3 (00:35→18:03)
[2021-12-19] MEDS: MethylPREDNISolone 40 MG/ML VIAL IVP SCH ×2 (00:36→09:49)
[2021-12-19] MEDS ORDERED: *HR* LORazepam 2 MG/ML VIAL IVP ONE (02:05)
[2021-12-19 03:58] LABS: Basophils % 0.2 %; Hemoglobin 14.9 g/dL (11.5-15.4); Immature Granulocytes % 0.5 % (0-4); Lymphocytes # 0.8 K/mcL (0.6-4.6); Mean Corpuscular HGB Conc 29.8 g/dL (31.6-35.5); Mean Corpuscular Hemoglobin 27.8 pg (28.0-33.3); Mean Corpuscular Volume 93.3 fL (83.0-100.0); Mean Platelet Volume 10.9 fL (9.4-12.4); Monocytes # 0.2 K/mcL (0.0-1.3); Monocytes % 1.7 %; Neutrophils # 11.4 K/mcL (1.6-8.9); Platelet Count 186 K/mcL (140-400); Red Blood Count 5.36 M/mcL (3.82-4.97); Red Cell Distribution Width 13.9 % (11.5-14.5); Segmented Neutrophils % 91.6 %; White Blood Count 12.5 K/mcL (4.3-11.1)
[2021-12-19] MEDS: Ipratropium/Albuterol Neb 3 ML IH SCH ×6 (04:08→23:10)
[2021-12-19 04:22] LABS: Calcium 9.6 mg/dL (8.6-10.3); Magnesium 1.5 mg/dL (1.6-2.6); Phosphorous 2.8 mg/dL (2.7-4.5); Potassium 5.5 mEq/L (3.5-5.1)
[2021-12-19 04:33] LABS: ABG Base Excess 9 mEq/L (-2 to 3); ABG HCO3 38 mEq/L (21-27); ABG Oxygen Saturation 95 % (95-98); ABG PCO2 64 mmHg (35-45); ABG PH 7.38 pH Units (7.32-7.45); ABG PO2 79 mmHg (85-104); ABG TCO2 40 mEq/L (20-26); Blood Gas Modality BiLevel; Blood Gas Pressure Support 8 cm H2O
[2021-12-19] MEDS: *HR* Heparin 5,000 UNIT/ML VIAL SQ SCH ×2 (05:50→16:36)
[2021-12-19] MEDS ORDERED: Insulin LISPRO 300 UNITS/3 ML VIAL SUBQ SCH (07:39)
[2021-12-19] MEDS ORDERED: cefTRIAXone 1,000 MG in 0.9 % Sodium Chloride Mini Bag 100 ML IVPB SCH (09:00)
[2021-12-19] MEDS ORDERED: lisinopriL 10 MG TABLET PO SCH (09:00)
[2021-12-19] MEDS: Insulin DETEMIR 100 UNIT/ML X5UNITS SUBQ SCH ×2 (09:49→21:07)
[2021-12-19] MEDS: SODIUM ZIRCONIUM CYCLOSILICATE 5 GM POWD.PACK PO SCH ×3 (10:03→21:07)
[2021-12-19] MEDS: hydrALAZINE 25 MG TABLET PO SCH ×3 (10:04→21:06)
[2021-12-19] MEDS: carvediloL 6.25 MG TABLET PO SCH ×2 (10:04→16:36)
[2021-12-19] MEDS: lamoTRIgine 100 MG TABLET PO SCH ×2 (10:05→21:06)
[2021-12-19] MEDS: amLODIPine 5 MG TABLET PO SCH (10:05)
[2021-12-19] MEDS: Cyanocobalamin (B-12) 1,000 MCG TABLET PO SCH (10:05)
[2021-12-19] MEDS: Aspirin Enteric Coated 81 MG Tablet PO SCH (10:05)
[2021-12-19] MEDS: *HR* OxyCODONE/APAP 7.5/325 TABLET PO PRN (21:06)
[2021-12-19] MEDS: Gabapentin 300 MG CAPSULE PO SCH (22:04)
[2021-12-19] MEDS: methocarbamoL 750 MG TABLET PO SCH (22:15)
[2021-12-20] MEDS: Piperacillin/Tazobactam 3.375 GM in 0.9 % Sodium Chloride Mini Bag 100 ML IVPB SCH ×4 (00:25→23:46)
[2021-12-20] MEDS: Ipratropium/Albuterol Neb 3 ML IH SCH ×5 (04:20→20:35)
[2021-12-20 05:03] LABS: Hematocrit 48.9 % (35.3-44.9); Hemoglobin 15.2 g/dL (11.5-15.4); Mean Corpuscular HGB Conc 31.1 g/dL (31.6-35.5); Mean Corpuscular Hemoglobin 28.6 pg (28.0-33.3); Mean Corpuscular Volume 91.9 fL (83.0-100.0); Mean Platelet Volume 10.9 fL (9.4-12.4); Platelet Count 190 K/mcL (140-400); Red Blood Count 5.32 M/mcL (3.82-4.97); Red Cell Distribution Width 14.5 % (11.5-14.5); White Blood Count 17.3 K/mcL (4.3-11.1)
[2021-12-20 05:20] LABS: Calcium 9.5 mg/dL (8.6-10.3); Potassium 4.5 mEq/L (3.5-5.1)
[2021-12-20] MEDS: *HR* Heparin 5,000 UNIT/ML VIAL SQ SCH ×2 (06:35→16:49)
[2021-12-20] MEDS: MethylPREDNISolone 40 MG/ML VIAL IVP SCH (08:51)
[2021-12-20] MEDS: amLODIPine 5 MG TABLET PO SCH (08:52)
[2021-12-20] MEDS: Gabapentin 300 MG CAPSULE PO SCH ×3 (08:52→20:02)
[2021-12-20] MEDS: Insulin DETEMIR 100 UNIT/ML X5UNITS SUBQ SCH ×2 (08:52→20:02)
[2021-12-20] MEDS: carvediloL 6.25 MG TABLET PO SCH ×2 (08:52→16:49)
[2021-12-20] MEDS: lamoTRIgine 100 MG TABLET PO SCH ×2 (08:52→20:02)
[2021-12-20] MEDS: hydrALAZINE 25 MG TABLET PO SCH ×3 (08:52→20:04)
[2021-12-20] MEDS: Aspirin Enteric Coated 81 MG Tablet PO SCH (08:55)
[2021-12-20] MEDS: methocarbamoL 750 MG TABLET PO SCH ×3 (08:55→20:04)
[2021-12-20] MEDS: Cyanocobalamin (B-12) 1,000 MCG TABLET PO SCH (08:55)
[2021-12-20] MEDS: Insulin LISPRO 300 UNITS/3 ML VIAL SUBQ SCH ×3 (08:56→16:49)
[2021-12-20] MEDS ORDERED: calcitrioL 0.25 MCG CAPSULE PO SCH (09:00)
[2021-12-20] MEDS: *HR* OxyCODONE/APAP 7.5/325 TABLET PO PRN (20:05)
[2021-12-20] MEDS ORDERED: Insulin LISPRO 300 UNITS/3 ML VIAL SUBQ SCH (21:00)
[2021-12-21] MEDS: Ipratropium/Albuterol Neb 3 ML IH SCH ×4 (00:15→11:14)
[2021-12-21] MEDS: *HR* Heparin 5,000 UNIT/ML VIAL SQ SCH (05:04)
[2021-12-21] MEDS: Insulin LISPRO 300 UNITS/3 ML VIAL SUBQ SCH ×2 (06:47→11:24)
[2021-12-21 07:08] VITALS: PULSE 86
[2021-12-21] MEDS ORDERED: predniSONE 20 MG TABLET PO SCH (09:00)
[2021-12-21] MEDS: lamoTRIgine 100 MG TABLET PO SCH (09:05)
[2021-12-21] MEDS: Cyanocobalamin (B-12) 1,000 MCG TABLET PO SCH (09:05)
[2021-12-21] MEDS: Aspirin Enteric Coated 81 MG Tablet PO SCH (09:05)
[2021-12-21] MEDS: amLODIPine 5 MG TABLET PO SCH (09:05)
[2021-12-21] MEDS: carvediloL 6.25 MG TABLET PO SCH (09:06)
[2021-12-21] MEDS: Gabapentin 300 MG CAPSULE PO SCH (09:06)
[2021-12-21] MEDS: methocarbamoL 750 MG TABLET PO SCH (09:06)
[2021-12-21] MEDS: hydrALAZINE 25 MG TABLET PO SCH (09:06)
[2021-12-21] MEDS: Piperacillin/Tazobactam 3.375 GM in 0.9 % Sodium Chloride Mini Bag 100 ML IVPB SCH (09:09)
[2021-12-21] MEDS: Insulin DETEMIR 100 UNIT/ML X5UNITS SUBQ SCH (09:13)
[2021-12-21 11:03] VITALS: BP 149/58; TEMP 97.7
[2021-12-21 18:16] VITALS: O2SAT 96
== END 2021-12-21 14:52 | disposition home or self-care (01) | DRG 190 ==
LOC: EMEROOARM 08:05 → 2NNU 08:05 → SUATTDRO 15:15 → 2NNU 16:07
PROVIDERS: ADMIT Internal Medicine; ATTEND Internal Medicine

== ENCOUNTER 2022-01-22 11:34 | Observation (INO) ==
[2022-01-22] MEDS: Ipratropium/Albuterol Neb 3 ML IH SCH ×3 (14:14→20:12)
[2022-01-22] MEDS ORDERED: Naloxone 0.4 MG/ML INJ IVP PRN (14:27)
[2022-01-22] MEDS ORDERED: Ondansetron 4 MG/2 ML VIAL IVP PRN (14:27)
[2022-01-22 14:29] LABS: ABG Base Excess 10 mEq/L (-2 to 3); ABG HCO3 41 mEq/L (21-27); ABG Oxygen Saturation 83 % (95-98); ABG PCO2 81 mmHg (35-45); ABG PH 7.31 pH Units (7.32-7.45); ABG PO2 54 mmHg (85-104); ABG TCO2 43 mEq/L (20-26)
[2022-01-22] MEDS ORDERED: *HR* Dextrose 50 % in Water (Syg) 50 ML SYRINGE IVP PRN (14:38)
[2022-01-22] MEDS ORDERED: D5% in Water 1,000 ML IVC PRN (14:38)
[2022-01-22] MEDS ORDERED: Dextrose Gel 15 GM/37.5 ML TUBE PO PRN ×2 (14:38)
[2022-01-22] MEDS: Insulin LISPRO 300 UNITS/3 ML VIAL SUBQ SCH (16:34)
[2022-01-22] MEDS: Acetaminophen 325 MG TABLET PO PRN (17:12)
[2022-01-22] MEDS: carvediloL 6.25 MG TABLET PO SCH (17:12)
[2022-01-22] MEDS ORDERED: *HR* OxyCODONE/APAP 7.5/325 TABLET PO PRN (20:48)
[2022-01-22] MEDS ORDERED: Insulin LISPRO 300 UNITS/3 ML VIAL SUBQ SCH (21:00)
[2022-01-22] MEDS: *HR* Heparin 5,000 UNIT/ML VIAL SQ SCH (21:04)
[2022-01-22 22:41] LABS: Bilirubin,Urine Negative (Negative); Blood,Urine Negative (Negative); Clarity,Urine Clear (Clear); Color,Urine Colorless (Yellow); Glucose,Urine (UA) 30 mg/dL (Normal); Ketones,Urine Negative (Negative); Leukocyte Esterase,Urine Negative (Negative); Nitrite,Urine Negative (Negative); Protein,Urine 100 mg/dL (Neg-Trace); RBC,Urine 0-3 per hpf (0-3); Squamous Epithelial Cell,Urine Few per hpf (None-Few); Urobilinogen,Urine Normal (Normal); WBC,Urine 0-3 per hpf (0-3)
[2022-01-23] MEDS: Ipratropium/Albuterol Neb 3 ML IH SCH ×4 (00:09→11:19)
[2022-01-23 04:54] LABS: VBG HCO3 39 mEq/L (21-27); VBG PCO2 66 mmHg (41-51); VBG PH 7.38 pH Units (7.32-7.42); VBG PO2 128 mmHg (25-50)
[2022-01-23 05:01] LABS: Basophils # 0.1 K/mcL (0.0-0.2); Basophils % 0.5 %; Eosinophils # 0.1 K/mcL (0.0-0.6); Eosinophils % 0.8 %; Hematocrit 43.8 % (35.3-44.9); Hemoglobin 13.2 g/dL (11.5-15.4); Immature Granulocytes % 0.3 % (0-4); Lymphocytes # 2.9 K/mcL (0.6-4.6); Lymphocytes % 29.9 %; Mean Corpuscular HGB Conc 30.1 g/dL (31.6-35.5); Mean Corpuscular Hemoglobin 28.3 pg (28.0-33.3); Mean Corpuscular Volume 93.8 fL (83.0-100.0); Mean Platelet Volume 10.1 fL (9.4-12.4); Monocytes % 10.9 %; Neutrophils # 5.5 K/mcL (1.6-8.9); Platelet Count 157 K/mcL (140-400); Red Blood Count 4.67 M/mcL (3.82-4.97); Red Cell Distribution Width 14.6 % (11.5-14.5); Segmented Neutrophils % 57.6 %; White Blood Count 9.5 K/mcL (4.3-11.1)
[2022-01-23 05:09] LABS: Calcium 9.7 mg/dL (8.6-10.3); Magnesium 1.7 mg/dL (1.6-2.6); Potassium 4.4 mEq/L (3.5-5.1)
[2022-01-23] MEDS: Acetaminophen 325 MG TABLET PO PRN (05:20)
[2022-01-23] MEDS: *HR* Heparin 5,000 UNIT/ML VIAL SQ SCH (05:21)
[2022-01-23 06:48] VITALS: BP 174/85; PULSE 92; TEMP 98.3
[2022-01-23] MEDS ORDERED: methocarbamoL 750 MG TABLET PO SCH (09:00)
[2022-01-23] MEDS ORDERED: amLODIPine 5 MG TABLET PO SCH (09:00)
[2022-01-23] MEDS ORDERED: hydrALAZINE 25 MG TABLET PO SCH (09:00)
[2022-01-23] MEDS ORDERED: NON-FORMULARY MEDICATION 1 EACH EACH (Amlodipine Besylate 10 MG Tablet) PO SCH (09:00)
[2022-01-23] MEDS ORDERED: Gabapentin 300 MG CAPSULE PO SCH (09:00)
[2022-01-23] MEDS ORDERED: Cyanocobalamin (B-12) 1,000 MCG TABLET PO SCH (09:00)
[2022-01-23] MEDS ORDERED: Aspirin Enteric Coated 81 MG Tablet PO SCH (09:00)
[2022-01-23] MEDS ORDERED: lisinopriL 10 MG TABLET PO SCH (09:00)
[2022-01-23] MEDS ORDERED: lamoTRIgine 100 MG TABLET PO SCH (09:00)
[2022-01-23] MEDS ORDERED: LEVOMILNACIPRAN HCL 40 MG PO SCH (09:00)
[2022-01-23] MEDS: Insulin LISPRO 300 UNITS/3 ML VIAL SUBQ SCH (09:17)
[2022-01-23] MEDS: carvediloL 6.25 MG TABLET PO SCH (09:18)
[2022-01-23] MEDS ORDERED: (Stiolto Respimat Inhal) IH SCH (10:00)
[2022-01-23 11:20] VITALS: O2SAT 90
[2022-01-24] MEDS ORDERED: calcitrioL 0.25 MCG CAPSULE PO SCH (09:00)
== END 2022-01-23 13:25 | disposition home or self-care (01) ==
LOC: 3NENU
PROVIDERS: ADMIT Internal Medicine; ATTEND Internal Medicine